=== PATIENT | male | born 1980 | race African-American/Black ===

== ENCOUNTER 2017-05-17 13:59 | Emergency (ER) | payer BC ==
--- NOTE | ~2017-05-17 | CT4 ---
[facility] A Service of [facility] & [facility] / [facility] RADIOLOGY TEXT RESULTS PATIENT: LENIN ESPNIOZA LOCATION: SED : 78 UNIT #: [id number] AGE: [address]: Guille Pandya MD SEX: M ORDER DR: [id number] [place] [id number] E MR#: [id number] #: [id number] NAME: LENIN ESPINOZA : 1980 SEX: M STUDY DATE/TIME: 05/17/2017 15:10 UNIT: SED ROOM: STUDY DESCRIPTION: CT Abd and Pelv Wo Cont Attending Physician: Guille Pandya M.D. Ordering Physician: Guille Pandya M.D. MEDICAL IMAGING REPORT This report is preliminary unless electronic signature is present. EXAM CT of the abdomen and pelvis without contrast dated 05/17/2017. COMPARISON None. HISTORY Patient woke up this morning with blood in boxers. No pain, nausea, vomiting or diarrhea. FINDINGS CT of the abdomen and pelvis were obtained without IV or oral contrast in the axial plane followed by sagittal and coronal reformats. This CT exam was performed with one or more of the following radiation dose reduction techniques: Automatic exposure control, adjustment of mA and/or kV according to patient size, and iterative reconstruction. LOWER CHEST: Lungs are well aerated. Calcified right lower lobe lung nodule is seen, likely related to old granulomatous disease. Heart is of normal size. ABDOMEN: No renal stones, hydronephrosis, ureteral stones or hydroureters. The course of the ureters could not be followed in entirety. Lack of IV contrast limits evaluation of solid organs. Grossly, the liver, spleen, kidneys, right adrenal gland are within normal limits. Anterior and superior to the left kidney, in the region of the left adrenal gland, there appears to be a 1.1 x 1.1 cm lesion which could arise from the left adrenal gland or could be immediately adjacent to it. Lack of oral contrast limits evaluation of bowel loops. No evidence of bowel obstruction, free fluid or free air intraperitoneally. Appendix and gallbladder are grossly unremarkable. Bones do not demonstrate any significant abnormality. STS. [facility] A Service of [facility] & [facility] / [facility] RADIOLOGY TEXT RESULTS PATIENT: LENIN ESPINOZA LOCATION: SED : [birth year] UNIT #: [id number] AGE: [address]: Guille Pandya MD SEX: M ORDER DR: PELVIS: Urinary bladder is partially decompressed. Visualized prostate and seminal vesicles do not demonstrate any significant abnormality. Tiny amount of free fluid in the dependent portion of the pelvis cannot be excluded. IMPRESSION 1. No evidence of renal stones, ureteral stones, hydronephrosis or hydroureters. 2. There is a 1.1 x 1.1 cm lesion in the region of the left adrenal gland. It either arises from the left adrenal or is immediately adjacent to it. If it is from the adrenal gland, differential consideration include adrenal adenoma. Lymph node is in the differential consideration. No surrounding acute inflammatory change is seen. 3. Appendix and gallbladder are unremarkable. 4. Tiny amount of free fluid in the pelvic dependent cul-de-sac cannot be excluded. Adjacent structures do not demonstrate any significant abnormality in this noncontrasted study. 5. Urinary bladder is within normal limits. Dictated by... Rashel Zavala M.D. THIS IS AN ELECTRONICALLY VERIFIED REPORT Rashel Zavala M.D. at 05/20/2017 9:15 AM CPR/psc TD: 05/18/2017 08:43 JOB #: [id number] MEDICAL IMAGING REPORT Page 1 of 1
[~2017-05-17 13:59] MED LIST: ALBUTEROL17 GM INH; AUGMENTIN PO; FLEXERIL10 MG PO; IBUPROFEN800 MG PO; LORTAB 10-5001 EACH PO; LORTAB 5/500 TA1 TA1 PO; MEDROL DOSEPAK4 MG PO; MOTRIN400 MG PO; MOTRIN600 MG PO; ORUDIS75 M1 PO; PERCOCET 5-3251 TAB PO; PREDNISONE PO; RONDEC-DM SYRU120 ML PO; VOLTAREN75 MG PO; ZITHROMAX PO
[2017-05-17] MEDS ORDERED: NORVASC10 MG (14:12)
[2017-05-17 15:16] LABS: BASOPHIL% 0.2 % (0-2.5); EOSINOPHIL# 0.2 X10e3 (0-0.7); EOSINOPHIL% 4.6 % (0.0-7.0); HEMATOCRIT 42.7 % (38.0-50.0); LYMPHOCYTE# 1.9 X10e3 (1.0-3.5); LYMPHOCYTE% 35.4 % (17.0-45.0); MEAN CELL VOLUME 81.2 FL (83-96); MEAN CORPUSCULAR HEMOGLOBIN 26.6 PG (28-34); MEAN CORPUSCULAR HGB CONC 32.7 g/dL (30-36); MEAN PLATELET VOLUME 10.9 FL (6.5-11.5); MONOCYTE# 0.5 X10e3 (0-1.0); MONOCYTE% 9.9 % (3.0-12.0); NEUTROPHIL# 2.7 X10e3 (1.5-7.1); NEUTROPHIL% 49.9 % (40-75); PLATELET COUNT 108 X10e3 (140-420); RED BLOOD COUNT 5.26 X10e (3.90-5.60); RED CELL DISTRIBUTION WIDTH 15.1 % (11.0-15.5); WHITE BLOOD COUNT 5.4 X10e3 (4.0-10.5)
[2017-05-17 15:20] LABS: DIFF IND NO
[2017-05-17 15:25] LABS: INR 1.1; PROTHROMBIN TIME (PATIENT) 12.4 SECONDS (9.5-12.4)
[2017-05-17 15:43] LABS: ALBUMIN SERUM 4.1 g/dL (3.5-5.0); BILIRUBIN, DIRECT 0.1 mg/dL (0.0-0.2); BILIRUBIN,INDIRECT 0.4 mg/dL (0.0-0.9); BILIRUBIN,TOTAL 0.5 mg/dL (0.2-2.0); BUN/CREATININE RATIO 7.5; CALCIUM SERUM 8.6 mg/dL (8.4-10.2); CREATININE SERUM 1.2 mg/dL (0.6-1.4); GLOM FILT RATE Estimated 88.4 mL/min (>60); POTASSIUM 3.9 mmol/L (3.5-5.1); PROTEIN TOTAL SERUM 6.7 g/dL (6.0-8.3)
== END 2017-05-17 17:39 | disposition home or self-care (01) ==
LOC: SED 13:59
PROVIDERS: Emergency Medicine
DX: K64.4 Residual hemorrhoidal skin tags (principal); I10 Essential (primary) hypertension; F17.210 Nicotine dependence, cigarettes, uncomplicated
CPT/HCPCS: 36415; 74176; 80048; 80076; 85025; 85610; 85730; 96374; 99284; C9113